=== PATIENT | male | born 1995 | race Caucasian/White ===

== ENCOUNTER 2023-06-26 18:39 | Emergency (ER) | payer OTHER ==
[~2023-06-26] VITALS: Ht 180.3 cm; Wt 80.7 kg
[2023-06-26 19:06] VITALS: BP 143/93; PULSE 76; RESP 18; TEMP 97.5; O2SAT 98
[2023-06-26 21:07] LABS: BASOPHILS % (AUTO) 0.2 % (0.0-2.0); EOSINOPHILS % (AUTO) 0.6 % (0.0-4.0); HEMATOCRIT 44.3 % (36-52); LYMPHOCYTES # (AUTO) 3.1 K/uL (2.0-11.5); LYMPHOCYTES % (AUTO) 41.6 % (20.5-51.1); MEAN CORPUSCULAR HEMOGLOBIN 27 pg (27-31); MEAN CORPUSCULAR HGB CONC 34 g/dL (33-37); MEAN CORPUSCULAR VOLUME 80.4 fL (80-94); MONOCYTES # (AUTO) 0.7 K/uL (0.8-1.0); MONOCYTES % (AUTO) 9.3 % (1.7-9.3); NEUTROPHILS # (AUTO) 3.6 K/uL (1.8-7.7); NEUTROPHILS % (AUTO) 48.3 % (42.2-75.2); PLATELET COUNT (AUTO) 288 K/uL (140-450); RED BLOOD CELL COUNT(AUTO) 5.52 MIL/uL (4.20-6.10); RED CELL DISTRIBUTION WIDTH 13.7 % (11.6-13.7); WHITE BLOOD COUNT (AUTO) 7.4 K/uL (4.8-10.8)
[2023-06-26 21:22] LABS: ALBUMIN 4.4 g/dL (3.4-5.0); ANION GAP 12.8 (8-16); CARBON DIOXIDE 30.4 mmol/L (21-32); CREATININE 1.1 mg/dL (0.6-1.3); POTASSIUM 4.2 mmol/L (3.5-5.1); TOTAL BILIRUBIN 0.3 mg/dL (0.0-1.0)
[2023-06-26] MEDS ORDERED: PROCHLORPERAZINE 10 MG/2 ML VIAL IM ONE (21:25)
[2023-06-26] MEDS ORDERED: KETOROLAC 30 MG/ML VIAL IM ONE (21:25)
--- NOTE | 2023-06-26 21:30 | NUR ---
PT IS OLVIN AHUJA
--- NOTE | 2023-06-26 21:32 | NUR ---
DR EXAMINING THE PATIENT
[2023-06-26 23:59] VITALS: BP 143/93; PULSE 76; RESP 18; TEMP 97.5; O2SAT 98
--- NOTE | 2023-06-26 23:59 | NUR ---
PT TAKEN TO BED 9
[2023-06-27] MEDS ORDERED: ONDA-188 PO (00:27)
[2023-06-27] MEDS ORDERED: FAMO-90 PO (00:27)
[2023-06-27] MEDS ORDERED: MIRABULK PO (00:27)
[2023-06-27] MEDS ORDERED: PROCHLORPERAZINE 10 MG/2 ML VIAL ONE (00:39)
[2023-06-27] MEDS ORDERED: KETOROLAC 30 MG/ML VIAL ONE (00:40)
== END 2023-06-27 00:25 | disposition left against medical advice (07) ==
LOC: MED 18:39
DX: K59.00 Constipation, unspecified (principal); R11.0 Nausea; Z79.899 Other long term (current) drug therapy
CPT/HCPCS: 36415; 76705; 80053; 83690; 85025; 96372; 99285; J0780; J1885; Q0092